=== PATIENT | male | born 1990 | race Caucasian/White ===

== ENCOUNTER 2023-04-26 16:30 | Emergency (ER) | payer OTHER, SELFPAY ==
[2023-04-26] VITALS (29 sets, daily range): BP systolic 120–176; BP diastolic 53–108; PULSE 58–88; RESP 8–32; O2SAT 96–100
--- NOTE | 2023-04-26 16:30 | RT.EKG_ITS ---
APPROVED REPORT Exam: Resting ECG Reason for Exam: Chest Pain Patient Location: E HR:80 bpm ECG Measurements Heart Rate 80 AXIS DE 188 P 69 QRSd 103 QRS 41 QT 348 T 27 QTc 400 Conclusion Sinus rhythm...normal P axis, V-rate 60- 99 ST elev, probable normal early repol pattern...ST elevation, age<55 Normal sinus rhythm at a rate of 80. Interventricular conduction delay. DE and QTc within normal li mits. Normal axis. No ST segment abnormalities. No T wave versions. Patient does have a Q wave in lead III. No prior for comparison.
[2023-04-26 17:27] LABS: Abs Immature Grans 0.01 10^3/uL (0.0-0.06); Absolute Basophil Count 0.03 10^3/uL (0.0-0.2); Absolute Eosinophil Count 0.12 10^3/uL (0.0-0.7); Absolute Lymphocyte Count 2.52 10^3/uL (1.2-3.4); Absolute Monocyte Count 0.45 10^3/uL (0.1-0.8); Absolute Neutrophil Count 3.08 10^3/uL (1.2-6.7); Basophils % 0.5; Eosinophils % 1.9; HCT 46.3 % (40.0-50.0); HGB 15.6 g/dL (13.5-17.5); Immature Grans % 0.2; Lymphocytes % 40.6; MCH 29.2 pg (27.0-33.0); MCHC 33.7 % (32.0-36.0); MCV 87 fL (80-95); Monocytes % 7.2; Neutrophils % 49.6; Platelet Count 229 10^3/uL (130-400); RBC 5.34 10^6/uL (4.36-5.78); RDW 12.6 % (11.8-14.1); RDW-SD 39.6 fL; WBC 6.21 10^3/uL (4.4-10.8)
[2023-04-26 17:48] LABS: PTT Activated 24.5 sec (23.6-32.8); Prothrombin Time 10.5 sec (9.1-11.1)
[2023-04-26 18:02] LABS: ALT 25 U/L (16-63); AST 19 U/L (15-37); Albumin 4.4 g/dL (3.4-5.0); Alkaline Phosphatase 62 U/L (46-116); Anion Gap 10.9 mmol/L (3-11); BUN 15 mg/dL (7-18); Bilirubin, Total 0.7 mg/dL (0.2-1.0); CO2 27.1 mmol/L (21.0-32.0); CREATININE 1.1 mg/dL (0.70-1.30); Calcium 9.1 mg/dL (8.5-10.1); Chloride 104 mmol/L (98-107); Estimated GFR 90.34 (mL/min/1.73m2); Glucose 131 mg/dL (74-106); Magnesium 2.1 mg/dL (1.8-2.4); Potassium 3.5 mmol/L (3.5-5.1); Sodium 142 mmol/L (136-145); TSH (W/Ref FT4) 5.66 uIU/mL (0.36-3.74); Total Protein 7.8 g/dL (6.4-8.2); Troponin I < 50 ng/L (< or =60)
[2023-04-26 18:03] LABS: D-Dimer 168 ng/mlFEU (<500)
--- NOTE | 2023-04-26 18:04 | W.ED.GENAD ---
HPI General Mode of arrival: ambulatory. Date/Time Provider Initiated Documentation: 04/26/23 16:32. Limitations to Documentation: no limitations. Information obtained by: patient, family and RN notes reviewed. History of Present Illness 32 year old M presents to the emergency department with the chief complaint of Shortness of breath, chest pain, described as moderate, Quality is described as aching, Patient started experiencing this week(s) (1) Related Data Home Medications Medication Instructions Recorded Confirmed doxycycline hyclate 100 mg capsule 100 mg PO BID 21 days #42 caps 04/26/23 Previous Rx's Medication Instructions Recorded doxycycline hyclate 100 mg capsule 100 mg PO BID 21 days #42 caps 04/26/23 Allergies Allergy/AdvReac Type Severity Reaction Status Date / Time No Known Allergies Allergy Unverified 04/26/23 16:44 General Stated Complaint: Chest Pain SHEREE: 3 Review of Systems Constitutional Constitutional: Reports chills, Reports fatigue, Reports fever(s), Reports malaise and Denies poor appetite ENT Ears, Nose, Mouth, and Throat: Denies dizziness, Denies nasal congestion and Denies sore throat Cardiovascular Cardiovascular: Reports chest pain, Denies syncope, Denies rapid heart rate, Reports lightheadedness and Reports dyspnea Respiratory Respiratory: Denies chest congestion, Denies cough and Reports dyspnea Gastrointestinal Gastrointestinal: Denies abdominal pain, Denies nausea and Denies vomiting Musculoskeletal Musculoskeletal: Reports myalgias Integumentary/Breasts Skin/Breast: Denies rash Neurologic Neurologic: Denies dizziness, Denies syncope and Denies paresthesias Endocrine Endocrine: Reports fatigue Hematologic/Lymphatic Hematologic/Lymphatic: Denies lymphadenopathy Exam Const General: cooperative, healthy appearing, comfortable, no acute distress and not diaphoretic Nutritional Appearance: average body habitus Orientation: alert, awake and oriented x3 Limitations: mental status not altered Neck Neck: normal visual inspection, full ROM, trachea midline, supple and no anterior neck swelling Thyroid: thyroid normal Carotids: normal carotid upstroke and no bruits Chest Chest: normal inspection of the chest Resp Effort & Inspection: normal respiratory effort and able to speak in complete sentences Auscultation: clear to auscultation bilaterally Cardio Jugular venous pressure: no JVD Palpation: normal PMI Rate: regular rate Rhythm: regular rhythm Heart Sounds: S1 normal, S2 normal, no click, no gallops, no murmurs and no rubs Bruits: no abdominal aortic bruits and no carotid bruits Pulses: radial pulses present bilaterally 2+ GI Inspection: normal to inspection Palpation: soft, no aortic enlargement and no pulsatile masses Skin General skin exam: no rashes or lesions noted Neuro General: patient alert, patient awake, patient oriented x3, tone normal and moves all extremities Course Vital Signs Vital signs: Vital Signs Pulse 88 04/26/23 16:34 Respiratory Rate 18 04/26/23 16:34 Blood Pressure 173/95 H 04/26/23 16:34 Pulse Oximetry 98 04/26/23 16:34 Temperature Source Oral 04/26/23 16:34 Pulse 70 04/26/23 17:31 Pulse 71 04/26/23 17:31 Respiratory Rate 17 04/26/23 17:15 Respiratory Effort Normal, Non-Labored 04/26/23 17:08 Respiratory Depth Normal 04/26/23 17:08 Respiratory Pattern Normal 04/26/23 17:08 Blood Pressure 154/82 H 04/26/23 17:31 Blood Pressure Mean 101 04/26/23 17:31 Blood Pressure Position Supine 04/26/23 16:34 Pulse Oximetry 96 04/26/23 17:31 Oxygen Delivery Method Room Air 04/26/23 16:34 Oxygen Flow Rate 0 04/26/23 16:34 Pain Level 10 04/26/23 17:08 Lab/Test Results Lab/Test Results: Laboratory Tests Range/Units 04/26/23 16:45 WBC (4.4-10.8) 10^3/uL 6.21 RBC (4.36-5.78) 10^6/uL 5.34 Hgb (13.5-17.5) g/dL 15.6 Hct (40.0-50.0) % 46.3 MCV (80-95) fL 87 MCH (27.0-33.0) pg 29.2 MCHC (32.0-36.0) % 33.7 RDW (11.8-14.1) % 12.6 Plt Count (130-400) 10^3/uL 229 MPV (8.0-11.0) fL 10.0 Immature Gran % 0.2 Neutrophils % 49.6 Lymphocytes % 40.6 Monocytes % 7.2 Eosinophils % 1.9 Basophils % 0.5 Nucleated RBC % (0.0-0.3) % 0.0 Absolute Neutrophils (1.2-6.7) 10^3/uL 3.08 Absolute Lymphocytes (1.2-3.4) 10^3/uL 2.52 Absolute Monocytes (0.1-0.8) 10^3/uL 0.45 Absolute Eosinophils (0.0-0.7) 10^3/uL 0.12 Absolute Basophils (0.0-0.2) 10^3/uL 0.03 PT (9.1-11.1) sec 10.5 INR (0.9-1.1) 1.0 APTT (23.6-32.8) sec 24.5 D-Dimer (<500) ng/mlFEU 168 Sodium (136-145) mmol/L 142 Potassium (3.5-5.1) mmol/L 3.5 Chloride (98-107) mmol/L 104 Carbon Dioxide (21.0-32.0) mmol/L 27.1 Anion Gap (3-11) mmol/L 10.9 BUN (7-18) mg/dL 15 Creatinine (0.70-1.30) mg/dL 1.1 Est GFR (CKD-EPI 2020) (mL/min/1.73m2) 90.34 Glucose (74-106) mg/dL 131 H Calcium (8.5-10.1) mg/dL 9.1 Magnesium (1.8-2.4) mg/dL 2.1 Total Bilirubin (0.2-1.0) mg/dL 0.7 AST (15-37) U/L 19 ALT (16-63) U/L 25 Alkaline Phosphatase (46-116) U/L 62 Troponin I (< or =60) ng/L < 50 Total Protein (6.4-8.2) g/dL 7.8 Albumin (3.4-5.0) g/dL 4.4 TSH (0.36-3.74) uIU/mL 5.66 H Medical Decision Making Patient presenting to the emergency department for chief complaint of chest pain and shortness of breath. Patient reports for about the last week he had some fever and chills at the beginning of the week that seem to go away and then developed significant fatigue and exhaustion with some slight shortness of breath. Patient reports 4 days ago he was seen at an urgent care that did significant amount of blood work including tick and Lyme panel and was told that everything was normal. He continued to have symptoms and today had new onset of chest pain. Due to this patient is coming into the emergency department with significant other. Patient has no other significant past medical history. 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 Physical exam is contributory and no obvious physical exam findings are noted. Will perform EKG and lab workup. Concerned about possible myocarditis, endocarditis, tickborne illness. Patient's vital signs are stable and I have low suspicion of PE or embolism but will check D-dimer given that patient states familial history of embolism. Please see physician interpretation for full interpretation of EKG. On my review patient is in sinus rhythm, no acute findings to suggest STEMI. Upon reviewing EKG with physician there was noted a slight conduction delay that is nondiagnostic. Reviewed patient's labs and CBC is completely within normal range, D-dimer negative, CMP shows a glucose of 131, nondetected initial troponin, TSH was elevated at 5.66 with T4 being within normal range but on the lower end at 0.88. Chest x-ray was performed and shows no acute findings. Did perform delta troponin along with ESR and CRP all which were unremarkable. Did discussed with patient my concern for tickborne illness. We discussed that while he did just have complete tickborne panel sent out and reported as negative there is still likelihood that this could be because especially due to occupational hazard. After discussion of risk versus benefit patient was started on doxycycline. Did request that patient followed up with primary care provider within the next week for reassessment and return for new or worsening symptoms. After discussion of diagnosis and plan of care patient and significant other has no further needs, questions, or concerns and states clear understanding to return to the emergency department for any worsening symptoms. This documentation was generated using [employer] dictation system, please disregard any oddities of phrase or misspellings. Imaging Data Radiologic Study: Imaging: X-Ray Radiologist's impression: Exam(s) PROCEDURE INFORMATION: Exam: XR Chest Exam date and time: 04/26/2023 6:33 PM Age: 32 years old Clinical indication: Other: Unspecified; Patient HX: Chest pain TECHNIQUE: Imaging protocol: Radiologic exam of the chest. Views: 2 views. COMPARISON: No relevant prior studies available. FINDINGS: Lungs: The lungs are clear. There is no pulmonary vascular congestion. Pleural spaces: There are no pleural effusions present. There is no evidence of pneumothorax. Heart/Mediastinum: The cardiomediastinal silhouette is within normal limits. Bones/joints: Unremarkable. IMPRESSION: No active cardiopulmonary disease identified. Lab Data Lab results reviewed: Yes I reviewed the patient's lab results. Quality:SDOH Health Related Social Needs: No Data to Display PFSH All Active Problems (Updated 04/26/23 @ 20:18 by Mason Isbell NP) Chest pain (Acute) Fatigue (Acute) Elevated blood pressure reading (Acute) Tick-borne disease (Acute) Social History Smoking/Tobacco Use Status: Former Tobacco Use Smoking risk assessment performed?: Yes Alcohol Intake: current Alcohol Intake frequency: a few times a month Drug use: Never Substance use type: does not use Housing: house Do you feel safe at home: Yes Do you feel safe in your relationship?: Yes PAWSS Have you Been Recently Intoxicated or Drunk Within the Last 30 days?: Yes Have you Ever Experienced Previous Episodes of Alcohol Withdrawal?: No Have you ever Experienced Withdrawal Seizures?: No Have you ever Experienced Delirium Tremens(DT)s?: No Have you ever undergone Alcohol Rehabilitation Treatment (i.e, inpt ot outpatient treatment programs)?: No Have you ever Experienced Blackouts?: No Have you ever Combined Alcohol with other Downers within the last 90 days?: No Have you ever Combined Alcohol with any other Substance of Abuse during the last 90 days?: No Positive Blood Alcohol level on Presentation? [PCS.BAL]: No Evidence of Increased Autonomic Activity (i.e. HR>120, tremor, sweating, agitation, nausea)?: No Result: 1 Discharge Plan Disposition Patient Disposition: Home Discharge Details Clinical Impression: Tick-borne disease, Elevated blood pressure reading, Fatigue, Chest pain Primary Care Provider: Unknown,Unknown ED Provider: Mason Isbell Home Meds and New Rx's Prescriptions: New doxycycline hyclate 100 mg capsule 100 mg PO BID 21 Days Qty: 42 0RF Discharge Instructions Instructions: Chest Pain (ED), Lyme Disease (ED), Fatigue (ED) Additional Instructions: Please return to the emergency department for any new or significant worsening of symptoms Your workup today showed no emergent findings but given your occupation and symptoms of fever chills, severe fatigue, and chest discomfort I am concerned about tickborne illness. We have started you on a 3-week course of doxycycline and please take as directed and until fully complete It is very important to follow-up with your primary care provider for recheck of your blood pressure along with your symptoms there is no obvious source was found but only suspected at this time. Stand Alone Forms: Work Release Referrals: Primary Care Provider [Outside] - 1 week (Please call the office tomorrow for arrangement of follow-up appointment preferably in 1 week)
--- NOTE | 2023-04-26 18:15 | DI.RAD_ITS ---
Exam(s) XR CHEST 2V PA LATERAL EXAM: XR CHEST 2V PA LATERAL CLINICAL HISTORY: chest pain TECHNIQUE: 2D digital imaging was performed of the chest. Two images were obtained. PA and lateral views were obtained. COMPARISON: CR CHEST 2 VIEWS PA,LAT from 10/10/2012 CR ABD FLAT UPRIGHT PA CHEST from 04/01/2014 FINDINGS: MEDIASTINUM: Normal. HEART: Normal. PULMONARY VASCULATURE: Normal. LUNGS: Clear. PLEURAL SPACE: No pleural effusion or pneumothorax. BONE:Within normal limits for the patient's age. OTHER FINDINGS:Normal. IMPRESSION: No acute pulmonary findings. DATA REPOSITORY: RADIATION DOSE DELIVERED:
[2023-04-26 18:20] LABS: FREE T4 0.88 ng/dL (0.76-1.46)
--- NOTE | 2023-04-26 19:11 | DI.VRAD_ITS ---
PROCEDURE INFORMATION: Exam: XR Chest Exam date and time: 04/26/2023 6:33 PM Age: 32 years old Clinical indication: Other: Unspecified; Patient HX: Chest pain TECHNIQUE: Imaging protocol: Radiologic exam of the chest. Views: 2 views. COMPARISON: No relevant prior studies available. FINDINGS: Lungs: The lungs are clear. There is no pulmonary vascular congestion. Pleural spaces: There are no pleural effusions present. There is no evidence of pneumothorax. Heart/Mediastinum: The cardiomediastinal silhouette is within normal limits. Bones/joints: Unremarkable. IMPRESSION: No active cardiopulmonary disease identified. Dictated and Authenticated by: Alexander Chapman MD. Ordering:KEI Cuevas MD
[2023-04-26] MEDS: DOXYCYCLINE 100 MG in Normal Saline 100 ML IVPB (19:32)
[2023-04-26] MEDS: Normal Saline Flush 10 ML SYR IVP (19:42)
[2023-04-26 19:54] LABS: ESR 2 mm/hr (0-15)
[2023-04-26 20:06] LABS: C-Reactive Protein 0.06 mg/dL (0.0-0.3); Troponin I < 50 ng/L (< or =60)
== END 2023-04-26 20:56 | disposition home or self-care (01) ==
PROVIDERS: Emergency Provider Nurse Practitioner Family
DX: R07.9 Chest pain, unspecified (principal); R53.83 Other fatigue; Z11.9 Encounter for screening for infectious and parasitic diseases, unspecified; Z87.891 Personal history of nicotine dependence
CPT/HCPCS: 80053; 85652; 93005; 96365; 99284; 71046; 83735; 84439; 84443; 84484; 85025; 85379; 85610; 85730; 86140; 93010

== ENCOUNTER 2024-06-25 08:37 | Emergency (ER) | payer OTHER, SELFPAY ==
[2024-06-25 08:39] VITALS: BP 171/94; PULSE 74; TEMP 36.7; O2SAT 99
[2024-06-25 08:43] VITALS: BP 171/94; PULSE 74; TEMP 36.7; O2SAT 99
--- NOTE | 2024-06-25 09:04 | ED.GENADUL_ITS ---
Discharge Plan Disposition Patient Disposition: Home Condition: Stable Discharge Details Clinical Impression: Chemical exposure of eye Primary Care Provider: Unknown,Unknown ED Provider: Nakul Dumont Home Meds and New Rx's Prescriptions: No Action No Known Home Meds Discharge Instructions Instructions: Chemical Eye Injury (DC) Additional Instructions: your eyes have a normal PH and no signs of xiong or other injuries continue to wear protective eye gear when working around chemicals keep eyes moist with lubricating saline eye drops HPI General Date/Time Provider Initiated Documentation: 06/25/24 09:01 . Limitations to Documentation: no limitations . Information obtained by: patient . HPI Narrative: 33-year-old gentleman without significant past medical history presents for evaluation of hives after acidic chemical splashed in the eyes. He reports that it was a sugar processing chemical that is acidic with a low pH. States that splashed into his eyes. He had contact lenses and at the time and immediately removed them and began eye irrigation. He states afterwards he took a shower and continue to irrigate his eyes. He reports he feels a sensation of dryness in his eyes, but otherwise denies significant pain or visual change. Related Data Home Medications ?Medication ?Instructions ?Recorded ?Confirmed Unknown [No Known Home Meds] 06/25/24 06/25/24 Allergies Allergy/AdvReac Type Severity Reaction Status Date / Time No Known Allergies Allergy Unverified 06/25/24 08:42 General Stated Complaint: EyeProblem SHEREE: 3 Exam Narrative Exam Narrative: Review of Systems: All systems reviewed & are unremarkable except as noted in HPI and below Well-developed, no acute distress NCAT PERRL, normal conjunctiva Right eye 20/25 left eye 20/40 bilateral 2024 No fluorescein uptake, pH bilateral eyes 7.0 RRR Unlabored respiratory effort Course Vital Signs Vital signs: Vital Signs Temperature 36.7 C 06/25/24 08:39 Pulse 74 06/25/24 08:39 Blood Pressure 171/94 H 06/25/24 08:39 Pulse Oximetry 99 06/25/24 08:39 Temperature 36.7 C 06/25/24 08:43 Temperature Source Temporal Artery Scan 06/25/24 08:43 Pulse 74 06/25/24 08:43 Blood Pressure 171/94 H 06/25/24 08:43 Pulse Oximetry 99 06/25/24 08:43 Medical Decision Making Emergent evaluation of eye chemical exposure. Patient splashed with acidic chemical. At a good amount of irrigation prior to arriving in the emergency department. Has no deficit in visual acuity and no real symptoms at this time. Fluorescein uptake and pH testing are unremarkable for any acute injuries. Given normal pH at this time no indication for further irrigation. Recommend continued use of lubricating eyedrops as needed. Patient advised to throw away the contact lenses he was wearing but can resume wear with a new pair. Quality:SDOH Health Related Social Needs: No Data to Display PFSH All Active Problems (Updated 06/25/24 @ 09:02 by Nakul Dumont MD) Chemical exposure of eye (Acute) Social History Smoking/Tobacco Use Status: Current every day Tobacco Type: smokeless tobacco Smoking risk assessment performed?: Yes Alcohol Intake: current Alcohol Intake frequency: a few times a month Drug use: Never Substance use type: does not use Housing: house Do you feel safe at home: Yes Do you feel safe in your relationship?: Yes PAWSS Have you Been Recently Intoxicated or Drunk Within the Last 30 days?: No Have you Ever Experienced Previous Episodes of Alcohol Withdrawal?: No Have you ever Experienced Withdrawal Seizures?: No Have you ever Experienced Delirium Tremens(DT)s?: No Have you ever undergone Alcohol Rehabilitation Treatment (i.e, inpt ot outpatient treatment programs)?: No Have you ever Experienced Blackouts?: No Have you ever Combined Alcohol with other Downers within the last 90 days?: No Have you ever Combined Alcohol with any other Substance of Abuse during the last 90 days?: No Positive Blood Alcohol level on Presentation? [PCS.BAL]: No Evidence of Increased Autonomic Activity (i.e. HR>120, tremor, sweating, agitation, nausea)?: No Result: 0
[2024-06-25] MEDS: Tetracaine 0.5% 4 ML BTL (09:08)
[2024-06-25] MEDS: Fluorescein STRIPS 100/BOX 1 MG (09:08)
== END 2024-06-25 09:09 | disposition home or self-care (01) ==
LOC: ER 09:15
PROVIDERS: Emergency Provider Emergency Medicine
DX: H57.89 Other specified disorders of eye and adnexa (principal); F17.290 Nicotine dependence, other tobacco product, uncomplicated; Z77.098 Contact with and (suspected) exposure to other hazardous, chiefly nonmedicinal, chemicals
CPT/HCPCS: 99283